=== PATIENT | male | born 1990 | race Caucasian/White ===

== ENCOUNTER 2016-07-19 02:22 | Emergency (ER) | payer SELFPAY ==
[~2016-07-19] VITALS: Ht 182.9 cm; Wt 92.0 kg
[2016-07-19 03:13] LABS: HEMATOCRIT 38.3 % (38.0-50.0); MCV 85.9 FL (86-99); MEAN PLAT.VOLUME 8.5 uM^3 (9.0-12.4); PLATELET COUNT 212 K/uL (156-360); RBC DIS.WIDTH-CV 12.2 % (11.8-14.6); RBC DIS.WIDTH-SD 37.5 % (39-53); RED BLOOD COUNT 4.46 M/uL (4.00-5.50); WHITE BLOOD COUNT 7.4 K/uL (4.1-10.2)
[2016-07-19 03:20] LABS: CHLORIDE 102 mEq/L (99-109); POTASSIUM 3.9 mEq/L (3.7-5.4); SODIUM 137 mEq/L (136-147)
[2016-07-19 03:23] LABS: GLUCOSE 87 mg/dL (70-99)
[2016-07-19 03:24] LABS: ANION GAP 9 MEQ/L (2-14)
[2016-07-19 03:25] LABS: TOTAL BILIRUBIN 0.2 mg/dL (0.0-1.0)
[2016-07-19 03:26] LABS: SERUM ETHYL ALCOHOL < 10 mg/dL
[2016-07-19 03:27] LABS: ALKALINE PHOSPHATASE 80 IU/L (3-129); GFR ESTIMATE (CALCULATED) > 59 mL/min/
[2016-07-19 03:29] LABS: UREA NITROGEN (BUN) 11 mg/dL (9-23)
[2016-07-19 03:30] LABS: SALICYLATE < 5.0 MG/DL (15-30)
[2016-07-19 04:09] LABS: ADD MEDTOX COMMENT Y; AMPHETAMINE NEGATIVE (500 ng/mL); BARBITURATES NEGATIVE (200 ng/mL); BENZODIAZEPINES NEGATIVE (150 ng/mL); COCAINE NEGATIVE (150 ng/mL); INTERNAL CONTROLS VALID? YES; METHADONE NEGATIVE (200 ng/mL); METHAMPHETAMINE NEGATIVE (500 ng/mL); OPIATES (MORPHINE) PRESUMPTIVE POSITIVE (100 ng/mL); OXYCODONE PRESUMPTIVE POSITIVE (100 ng/mL); PHENCYCLIDINE NEGATIVE (25 ng/mL); PROPOXYPHENE NEGATIVE (300 ng/mL); THC CANNABINOIDS NEGATIVE (50 ng/mL); TRICYCLIC ANTIDEPRESSANTS NEGATIVE (300 ng/mL)
[2016-07-19] MEDS ORDERED: NARCAN4 MG NS (04:33)
[2016-07-19 04:55] VITALS: BP 122/89
== END 2016-07-19 04:56 | disposition home or self-care (01) ==
LOC: EME 02:22
PROVIDERS: Physician Assistant Medical
DX: T50.901A Poisoning by unspecified drugs, medicaments and biological substances, accidental (unintentional), initial encounter (principal)
CPT/HCPCS: 80053; 84999; 85027; 99281; 99284; G0480; J2310